=== PATIENT | female | born 1935 | race Caucasian/White ===

== ENCOUNTER → 2017-02-26 | Outpatient (CLI) | payer MEDICARE ==
--- NOTE | 2017-02-26 15:02 | RADRPT ---
PROCEDURE: RIGHT knee x-ray CLINICAL INDICATION: 81-year-old female with right knee pain. TECHNIQUE: AP, lateral and oblique views of the knee were obtained. COMPARISON: None FINDINGS: There is mild narrowing of the medial joint space compartment. There is a small spur off the dorsal superior aspect of the patella. No effusion is noted. IMPRESSION: 1. Mild osteoarthritis of the right knee. RPTAT:AAJJ Physician Kirby Date Time Electronically viewed and signed by Bo Solorzano Physician on 02/26/2017 15:02 JERICA/
== END | disposition home or self-care (01) ==
LOC: EDBD 14:30 → HKI 16:56
PROVIDERS: ATTEND Orthopaedic Surgery
DX: M25.561 Pain in right knee (principal); M17.11 Unilateral primary osteoarthritis, right knee
CPT/HCPCS: 20610; 73564; G0463; J7327